=== PATIENT | male | born 1965 | race Two or more races ===

== ENCOUNTER 2020-08-03 19:54 | Inpatient (IN) | payer OTHER, MEDICAID ==
[~2020-08-03] VITALS: Ht 182.9 cm; Wt 42.0 kg
[2020-08-03] MEDS ORDERED: HEPARIN SODIUM (PORCINE) 5000 UNITS/ML 1ML VIAL ONE ×2 (20:12→20:46)
[2020-08-03] MEDS ORDERED: ASPirin 325 MG TAB PO ONE (20:15)
[2020-08-03] MEDS ORDERED: HEPARIN SODIUM (PORCINE) 5000 UNITS/ML 1ML VIAL IV ONE (20:15)
[2020-08-03] MEDS ORDERED: SODIUM CHLORIDE 0.9% 500 ML IV ONE (20:15)
[2020-08-03 20:34] LABS: Basophils # (auto) 0.2 10 ^3/uL (0-0.2); Basophils % (auto) 1.3 % (0.0-2.0); Eosinophils # (auto) 0.1 10 ^3/uL (0-0.8); Eosinophils % (auto) 0.7 % (0.0-7.0); Hematocrit 42.3 % (41.0-53.0); Hemoglobin 14.2 g/dL (13.5-17.5); Lymphocytes # (auto) 2.2 10 ^3/uL (0.4-5.4); Mean Corpuscular Hemoglobin 29.1 pg (28.0-32.0); Mean Corpuscular Hgb Conc. 33.6 g/dL (32.0-36.0); Mean Corpuscular Volume 86.8 fL (80.0-100.0); Monocytes # (auto) 0.9 10 ^3/uL (0-1.3); Monocytes % (auto) 7.3 % (0.0-12.0); Neutrophils # (auto) 9.6 10 ^3/uL (1.6-8.6); Neutrophils % (auto) 73.7 % (37.0-80.0); Nucleated Red Blood Cells % 0.1 %; Platelet Count (auto) 239 10^3/uL (140-450); Red Blood Cells 4.88 10^6/uL (4.5-5.90); Red Cell Distribution Width 15.8 % (11.8-14.3); White Blood Cell 13.1 10^3/uL (4.4-10.8)
[2020-08-03] MEDS ORDERED: IODIXANOL 320MG/ML 100ML BTL IV ONE (20:44)
[2020-08-03] MEDS ORDERED: LIDOCAINE 2%HCL (LOCAL ANESTH.) INJ 20ML MDV ONE (20:44)
[2020-08-03] MEDS ORDERED: ANGIOMAX 250 MG VIAL IV ONE ×2 (20:46→21:23)
[2020-08-03] MEDS ORDERED: VERAPAMIL 2.5MG/ML INJ 2ML VIAL IV ONE (20:47)
[2020-08-03] MEDS ORDERED: SODIUM CHL 0.9% 50 ML ONE ×2 (20:47→21:23)
[2020-08-03] MEDS ORDERED: fentaNYL CITRATE 100 MCG/2 ML VL ONE (20:47)
[2020-08-03] MEDS ORDERED: MORPHINE SULFATE 4 MG/ML SYR/VIAL IV STA (20:47)
[2020-08-03] MEDS ORDERED: MIDAZOLAM HCL 1MG/1ML-2 ML VIAL ONE (20:47)
[2020-08-03 20:49] LABS: INR 1.13 (0.9-1.15); Partial Thromboplastin Time 63.2 sec (23.0-31.2)
[2020-08-03 20:55] LABS: Albumin 2.9 g/dL (3.4-5.0); Magnesium 2.1 mg/dL (1.6-2.6)
[2020-08-03] MEDS ORDERED: ATROPINE SULF 1 MG/10ml SYR ONE (20:55)
[2020-08-03] MEDS ORDERED: EPINEPHrine HCL 1 MG/10 ML SYRG ONE (20:55)
[2020-08-03 20:59] LABS: Bilirubin, Total 0.3 mg/dL (0.2-1.0); Total Protein 7.3 g/dL (6.4-8.2)
[2020-08-03 21:02] LABS: Potassium 5.5 mmol/L (3.5-5.1)
[2020-08-03] MEDS ORDERED: ONDANSETRON HCL 4 MG/2 ML VIAL IV PRN (21:45)
[2020-08-03] MEDS ORDERED: MILK OF MAGNESIA 30ML SUSP PO ONE (21:45)
[2020-08-03] MEDS ORDERED: MORPHINE SULF INJ 2 MG/ML SYRINGE 1ML IV PRN (21:45)
[2020-08-03] MEDS ORDERED: HYDROcodone-ACET 5/325MG TAB PO PRN (21:45)
[2020-08-03] MEDS ORDERED: LORazepam 0.5 MG TAB PO PRN (21:45)
[2020-08-03] MEDS ORDERED: ACETAMINOPHEN 500 MG TAB PO PRN (21:45)
[2020-08-03] MEDS ORDERED: SODIUM CHLORIDE 0.9% 1,000 ML IV SCH (21:45)
[2020-08-03] MEDS ORDERED: MORPHINE SULFATE 4 MG/ML SYR/VIAL IV PRN (21:45)
[2020-08-03] MEDS ORDERED: NITROGLYCERIN 0.4 MG SL TAB SL PRN ×2 (21:45)
[2020-08-03] MEDS ORDERED: TICAGRELOR 90 MG TAB ONE (21:58)
[2020-08-03] MEDS: SODIUM CHLOR 0.9% PF (SALINE LOCK) 10ML VIAL/SYR IV SCH (22:00)
[2020-08-03] MEDS ORDERED: SODIUM CHLOR 0.9% PF (SALINE LOCK) 10ML VIAL/SYR IV SCH (22:00)
[2020-08-03 23:43] VITALS: BP 105/80
[2020-08-03 23:56] VITALS: BP 94/57
[2020-08-04] VITALS (24 sets, daily range): BP systolic 101–139; BP diastolic 47–86
[2020-08-04 05:17] LABS: Basophils # (auto) 0.1 10 ^3/uL (0-0.2); Basophils % (auto) 0.4 % (0.0-2.0); Eosinophils # (auto) 0.1 10 ^3/uL (0-0.8); Eosinophils % (auto) 0.7 % (0.0-7.0); Hematocrit 39.4 % (41.0-53.0); Hemoglobin 13.4 g/dL (13.5-17.5); Lymphocytes # (auto) 2.1 10 ^3/uL (0.4-5.4); Lymphocytes % (auto) 14.8 % (10.0-50.0); Mean Corpuscular Volume 85.5 fL (80.0-100.0); Monocytes # (auto) 1.1 10 ^3/uL (0-1.3); Monocytes % (auto) 7.9 % (0.0-12.0); Neutrophils # (auto) 10.8 10 ^3/uL (1.6-8.6); Neutrophils % (auto) 76.2 % (37.0-80.0); Nucleated Red Blood Cells % 0.6 %; Red Blood Cells 4.61 10^6/uL (4.5-5.90); Red Cell Distribution Width 15.6 % (11.8-14.3); White Blood Cell 14.1 10^3/uL (4.4-10.8)
[2020-08-04 05:22] LABS: Platelet Count (auto) 236 10^3/uL (140-450)
[2020-08-04 05:25] LABS: Albumin 2.8 g/dL (3.4-5.0); Calcium 7.8 mg/dL (8.5-10.1)
[2020-08-04 05:29] LABS: BUN/Creatinine Ratio 17.1; Bilirubin, Total 0.3 mg/dL (0.2-1.0); Total Protein 6.5 g/dL (6.4-8.2)
[2020-08-04] MEDS ORDERED: OPTISON 3ml Vial for INJ IV ONE (08:54)
[2020-08-04] MEDS: TICAGRELOR 90 MG TAB PO SCH ×2 (09:33→22:18)
[2020-08-04] MEDS ORDERED: BACLOFEN 10 MG TAB PO PRN (13:15)
[2020-08-04] MEDS ORDERED: PANTOPRAZOLE 40 MG TAB PO ONE (13:15)
[2020-08-04] MEDS ORDERED: TERA1CAP33 PO (13:46)
[2020-08-04] MEDS ORDERED: BACL10TA PO (13:46)
[2020-08-04] MEDS ORDERED: LOVA40TA72 PO ×2 (13:46)
[2020-08-04] MEDS ORDERED: OMEP20TA PO (13:46)
[2020-08-04] MEDS ORDERED: CEPH250C PO (13:46)
[2020-08-04] MEDS: SODIUM CHLOR 0.9% PF (SALINE LOCK) 10ML VIAL/SYR IV SCH ×3 (17:28→22:18)
[2020-08-04] MEDS ORDERED: ATORVASTATIN 20 MG TAB PO SCH (22:00)
[2020-08-05 05:00] VITALS: BP 108/65
[2020-08-05 05:55] LABS: Basophils # (auto) 0 10 ^3/uL (0-0.2); Basophils % (auto) 0.4 % (0.0-2.0); Eosinophils # (auto) 0.1 10 ^3/uL (0-0.8); Eosinophils % (auto) 0.9 % (0.0-7.0); Hematocrit 39.3 % (41.0-53.0); Hemoglobin 13.5 g/dL (13.5-17.5); Lymphocytes # (auto) 1.9 10 ^3/uL (0.4-5.4); Lymphocytes % (auto) 17.7 % (10.0-50.0); Mean Corpuscular Hemoglobin 29.9 pg (28.0-32.0); Mean Corpuscular Hgb Conc. 34.5 g/dL (32.0-36.0); Mean Corpuscular Volume 86.8 fL (80.0-100.0); Monocytes % (auto) 9.1 % (0.0-12.0); Neutrophils # (auto) 7.6 10 ^3/uL (1.6-8.6); Neutrophils % (auto) 71.9 % (37.0-80.0); Platelet Count (auto) 231 10^3/uL (140-450); Red Blood Cells 4.52 10^6/uL (4.5-5.90); Red Cell Distribution Width 15.8 % (11.8-14.3); White Blood Cell 10.6 10^3/uL (4.4-10.8)
[2020-08-05 06:08] LABS: Potassium 3.8 mmol/L (3.5-5.1)
[2020-08-05 06:17] LABS: BUN/Creatinine Ratio 18.3; Calcium 8.2 mg/dL (8.5-10.1)
[2020-08-05] MEDS: SODIUM CHLOR 0.9% PF (SALINE LOCK) 10ML VIAL/SYR IV SCH (06:49)
[2020-08-05] MEDS ORDERED: CLOPIDOGREL 300 MG TAB PO ONE (08:00)
[2020-08-05 09:00] VITALS: BP 129/81
[2020-08-05] MEDS ORDERED: ASPirin 81 mg TAB PO SCH (10:00)
[2020-08-05] MEDS ORDERED: PANTOPRAZOLE 40 MG TAB PO SCH (10:00)
[2020-08-05 11:45] VITALS: BP 129/81
[2020-08-05 12:52] VITALS: BP 142/79
[2020-08-06] MEDS ORDERED: CLOPIDOGREL BISULFATE 75 MG TAB PO SCH (10:00)
== END 2020-08-05 13:10 | disposition home or self-care (01) | DRG 246 ==
LOC: EDBD 19:54 → ER 19:57 → TELE 21:38 → ICU WEST 22:21 → TELE-EAST 08-04 15:24
PROVIDERS: ADMIT Internal Medicine; ATTEND Internal Medicine
PROC: B2111ZZ Fluoroscopy of Multiple Coronary Arteries using Low Osmolar Contrast (ICD-10-PCS; principal; 2020-08-03)
PROC: 027034Z Dilation of Coronary Artery, One Artery with Drug-eluting Intraluminal Device, Percutaneous Approach (ICD-10-PCS; 2020-08-03)
PROC: 4A023N7 Measurement of Cardiac Sampling and Pressure, Left Heart, Percutaneous Approach (ICD-10-PCS; 2020-08-03)
PROC: 5A09357 Assistance with Respiratory Ventilation, Less than 24 Consecutive Hours, Continuous Positive Airway Pressure (ICD-10-PCS; 2020-08-04)
DX: I21.29 ST elevation (STEMI) myocardial infarction involving other sites (principal); R65.11 Systemic inflammatory response syndrome (SIRS) of non-infectious origin with acute organ dysfunction; J98.11 Atelectasis; Z68.42 Body mass index [BMI] 45.0-49.9, adult; Z20.822 Contact with and (suspected) exposure to COVID-19; E66.01 Morbid (severe) obesity due to excess calories; I10 Essential (primary) hypertension; E78.5 Hyperlipidemia, unspecified; G47.33 Obstructive sleep apnea (adult) (pediatric); Z79.02 Long term (current) use of antithrombotics/antiplatelets; Z79.82 Long term (current) use of aspirin; Z88.0 Allergy status to penicillin; Z88.8 Allergy status to other drugs, medicaments and biological substances
CPT/HCPCS: 36415; 71045; 80048; 80053; 80061; 83735; 84484; 85025; 85610; 85730; 86850; 86900; 86901; 87081; 87426; 92928; 93005; 93306; 93458; 96361; 96374; 96375; 99152; 99153; C1874; G0378; J2250; Q9956; Q9967

== ENCOUNTER 2023-04-23 09:19 | Emergency (ER) | payer OTHER, MEDICAID ==
[~2023-04-23] VITALS: Ht 177.8 cm; Wt 136.3 kg
[~2023-04-23 09:19] MED LIST: BACL10TA PO; CEPH250C PO; LOVA40TA72 PO; OMEP20TA PO; TERA1CAP33 PO
[2023-04-23 09:56] LABS: Basophils # (auto) 0.1 10 ^3/uL (0-0.2); Basophils % (auto) 0.8 % (0.0-2.0); Eosinophils # (auto) 0.2 10 ^3/uL (0-0.8); Eosinophils % (auto) 2.2 % (0.0-7.0); Hematocrit 40.6 % (41.0-53.0); Hemoglobin 13.6 g/dL (13.5-17.5); Lymphocytes # (auto) 2.2 10 ^3/uL (0.4-5.4); Lymphocytes % (auto) 21.5 % (10.0-50.0); Mean Corpuscular Hgb Conc. 33.5 g/dL (32.0-36.0); Mean Corpuscular Volume 86.4 fL (80.0-100.0); Monocytes # (auto) 0.8 10 ^3/uL (0-1.3); Monocytes % (auto) 7.8 % (0.0-12.0); Neutrophils % (auto) 67.7 % (37.0-80.0); Nucleated Red Blood Cells % 0.1 %; Red Cell Distribution Width 16.3 % (11.8-14.3); White Blood Cell 10.3 10^3/uL (4.4-10.8)
[2023-04-23 10:07] LABS: Alanine Aminotransferase 26 U/L (7-40); Alkaline Phosphatase 98 U/L (46-116); Anion Gap 7 (5-15); Aspartate Aminotransferase 26 U/L (13-40); BUN/Creatinine Ratio 19.3 (10.0-20.0); Bilirubin, Total 0.3 mg/dL (0.2-1.0); Blood Urea Nitrogen 17 mg/dL (9-23); Calcium 8.9 mg/dL (8.5-10.1); Carbon Dioxide 25 mmol/L (20-30); Chloride 109 mmol/L (98-107); Glucose 99 mg/dL (74-106); Potassium 4.4 mmol/L (3.5-5.1); Sodium 141 mmol/L (136-145)
[2023-04-23 10:08] LABS: Total Protein 6.3 g/dL (5.7-8.2)
[2023-04-23 12:48] LABS: Urine Bacteria NONE SEEN /hpf (None Seen); Urine Blood Negative /uL (Negative); Urine Clarity Clear (Clear); Urine Mucus FEW (None Seen); Urine Protein, UAD Negative (Negative); Urine Specific Gravity 1.015 (1.001-1.035); Urine Urobilinogen Normal (Negative); Urine WBC 1 /hpf (0 - 3); Urine pH 6.5 (5.0-8.0)
[2023-04-23 12:57] VITALS: BP 118/67; TEMP 98.5
[2023-04-23 12:58] VITALS: PULSE 68; RESP 18; O2SAT 96
[2023-04-23 12:59] LABS: Urine Color STRAW (Yellow)
== END 2023-04-23 12:59 | disposition home or self-care (01) ==
LOC: ER 09:19 → EDBD 09:19 → ER 12:59
DX: R07.89 Other chest pain (principal); I10 Essential (primary) hypertension; E11.9 Type 2 diabetes mellitus without complications; I25.2 Old myocardial infarction; Z86.73 Personal history of transient ischemic attack (TIA), and cerebral infarction without residual deficits; Z88.0 Allergy status to penicillin
CPT/HCPCS: 36415; 80053; 81001; 83880; 84484; 85025; 93005

== ENCOUNTER 2023-04-28 03:52 | Emergency (ER) | payer OTHER, MEDICAID ==
[~2023-04-28] VITALS: Ht 172.7 cm; Wt 190.0 kg
[2023-04-28 04:24] LABS: Basophils # (auto) 0.1 10 ^3/uL (0-0.2); Basophils % (auto) 0.5 % (0.0-2.0); Eosinophils # (auto) 0.3 10 ^3/uL (0-0.8); Hematocrit 41.5 % (41.0-53.0); Hemoglobin 13.5 g/dL (13.5-17.5); Lymphocytes # (auto) 2.1 10 ^3/uL (0.4-5.4); Lymphocytes % (auto) 16.2 % (10.0-50.0); Mean Corpuscular Hemoglobin 28.1 pg (28.0-32.0); Mean Corpuscular Hgb Conc. 32.5 g/dL (32.0-36.0); Mean Corpuscular Volume 86.4 fL (80.0-100.0); Monocytes # (auto) 1.1 10 ^3/uL (0-1.3); Monocytes % (auto) 8.5 % (0.0-12.0); Neutrophils # (auto) 9.4 10 ^3/uL (1.6-8.6); Neutrophils % (auto) 72.8 % (37.0-80.0); Nucleated Red Blood Cells % 0.1 %; Red Blood Cells 4.81 10^6/uL (4.5-5.90); Red Cell Distribution Width 16.4 % (11.8-14.3); White Blood Cell 12.9 10^3/uL (4.4-10.8)
[2023-04-28 04:46] LABS: Alanine Aminotransferase 25 U/L (7-40); Albumin 4.1 g/dL (3.2-4.8); Alkaline Phosphatase 101 U/L (46-116); Anion Gap 8 (5-15); Aspartate Aminotransferase 27 U/L (13-40); BUN/Creatinine Ratio 13.3 (10.0-20.0); Bilirubin, Total 0.3 mg/dL (0.2-1.0); Blood Urea Nitrogen 13 mg/dL (9-23); Calcium 9.1 mg/dL (8.7-10.4); Carbon Dioxide 22 mmol/L (20-30); Chloride 110 mmol/L (98-107); Glucose 110 mg/dL (74-106); Lipase 41 U/L (12-53); Sodium 140 mmol/L (136-145); Total Protein 6.6 g/dL (5.7-8.2)
[2023-04-28 07:30] VITALS: PULSE 72; RESP 19; TEMP 97.6; O2SAT 95
[2023-04-28] MEDS ORDERED: BACDST PO (07:42)
[2023-04-28] MEDS ORDERED: SODIUM CHLORIDE 0.9% 1,000 ML IV ONE (07:45)
[2023-04-28] MEDS ORDERED: levoFLOXacin 750MG 150 ML IV ONE (08:30)
[2023-04-28 08:33] LABS: Urine Bacteria NONE SEEN /hpf (None Seen); Urine Blood 1+ /uL (Negative); Urine Clarity Clear (Clear); Urine Color Colorless (Yellow); Urine Protein, UAD Negative (Negative); Urine Specific Gravity 1.016 (1.001-1.035); Urine Urobilinogen Normal (Negative); Urine WBC 2 /hpf (0 - 3); Urine pH 5.5 (5.0-8.0)
[2023-04-28 10:18] VITALS: BP 123/68; PULSE 60; RESP 19; O2SAT 96
== END 2023-04-28 11:23 | disposition home or self-care (01) ==
LOC: ER 03:52 → EDBD 03:52 → ER 11:23
DX: M79.18 Myalgia, other site (principal); N39.0 Urinary tract infection, site not specified; I10 Essential (primary) hypertension; I25.2 Old myocardial infarction; Z86.73 Personal history of transient ischemic attack (TIA), and cerebral infarction without residual deficits; Z88.0 Allergy status to penicillin
CPT/HCPCS: 36415; 80053; 81001; 83690; 84484; 85025; 93005; 96365; 99284; J1956; J7030

== ENCOUNTER 2023-12-10 11:18 | Emergency (ER) | payer OTHER, MEDICAID ==
[~2023-12-10] VITALS: Ht 172.7 cm; Wt 177.3 kg
[~2023-12-10 11:18] MED LIST changes: +BACDST PO; -TERA1CAP33 PO; +TERA1CAP52 PO
[2023-12-10 11:52] VITALS: PULSE 68; RESP 16; TEMP 98; O2SAT 97
[2023-12-10 12:59] LABS: Basophils # (auto) 0.1 10 ^3/uL (0-0.2); Basophils % (auto) 0.6 % (0.0-2.0); Eosinophils # (auto) 0.1 10 ^3/uL (0-0.8); Eosinophils % (auto) 0.7 % (0.0-7.0); Hematocrit 42.6 % (41.0-53.0); Hemoglobin 14.1 g/dL (13.5-17.5); Lymphocytes # (auto) 1.8 10 ^3/uL (0.4-5.4); Mean Corpuscular Hemoglobin 29.1 pg (28.0-32.0); Mean Corpuscular Hgb Conc. 33.1 g/dL (32.0-36.0); Monocytes # (auto) 0.7 10 ^3/uL (0-1.3); Monocytes % (auto) 6.8 % (0.0-12.0); Neutrophils # (auto) 8.1 10 ^3/uL (1.6-8.6); Neutrophils % (auto) 74.9 % (37.0-80.0); Nucleated Red Blood Cells % 0.1 %; Red Blood Cells 4.84 10^6/uL (4.5-5.90); Red Cell Distribution Width 16.7 % (11.8-14.3); White Blood Cell 10.8 10^3/uL (4.4-10.8)
[2023-12-10 13:16] LABS: Albumin 4.3 g/dL (3.2-4.8); Alkaline Phosphatase 111 U/L (46-116); Anion Gap 6 (5-15); Aspartate Aminotransferase 38 U/L (13-40); Calcium 9.5 mg/dL (8.5-10.1); Carbon Dioxide 25 mmol/L (20-30); Chloride 107 mmol/L (98-107); Glucose 87 mg/dL (74-106); Sodium 138 mmol/L (136-145)
[2023-12-10 13:17] LABS: Bilirubin, Total 0.5 mg/dL (0.2-1.0); Total Protein 7.6 g/dL (5.7-8.2)
[2023-12-10 13:21] LABS: INR 1.05 (0.9-1.15); Prothrombin Time 11.1 sec (9.3-11.8)
[2023-12-10 13:22] LABS: Alanine Aminotransferase 20 U/L (7-40); Blood Urea Nitrogen 6 mg/dL (9-23); Potassium 4.6 mmol/L (3.5-5.1)
[2023-12-10 13:23] LABS: BUN/Creatinine Ratio 6.5 (10.0-20.0)
[2023-12-10 16:28] LABS: Urine Bacteria None Seen /hpf (None Seen)
[2023-12-10 16:40] LABS: Urine Blood Negative /uL (Negative); Urine Clarity Clear (Clear); Urine Color Light-Yellow (Yellow); Urine Protein, UAD Negative (Negative); Urine Specific Gravity 1.012 (1.001-1.035); Urine Urobilinogen Normal (Negative); Urine WBC 1 /hpf (0 - 3)
[2023-12-10] MEDS ORDERED: CEPH250C PO (19:03)
[2023-12-10 19:30] VITALS: BP 135/53; PULSE 63; RESP 16; O2SAT 94
== END 2023-12-10 19:30 | disposition home or self-care (01) ==
LOC: ER 11:18 → EDBD 11:18 → ER 19:30
DX: L98.499 Non-pressure chronic ulcer of skin of other sites with unspecified severity (principal); L03.116 Cellulitis of left lower limb; L03.115 Cellulitis of right lower limb; E11.9 Type 2 diabetes mellitus without complications; I10 Essential (primary) hypertension; I25.2 Old myocardial infarction; Z88.0 Allergy status to penicillin; Z88.1 Allergy status to other antibiotic agents; Z86.73 Personal history of transient ischemic attack (TIA), and cerebral infarction without residual deficits; Z98.61 Coronary angioplasty status
CPT/HCPCS: 36415; 73590; 73600; 73620; 80053; 81001; 85025; 85379; 85610; 87040; 93970

== ENCOUNTER 2024-06-12 13:38 | Emergency (ER) | payer OTHER, MEDICAID ==
[~2024-06-12] VITALS: Ht 177.8 cm; Wt 159.0 kg
--- NOTE | 2024-06-12 13:48 | ED.PDOC ---
GI ASSESSMENT HPI Comments 58Y M with PMHx HTN, CAD, CA s/p stenting, and CVA presents to ED via EMS for chief complaint abd pain x5days. The abd pain is intermittent, located on lower region, and radiates to pt's back. Pt denies n/v/d, SOB, and chest pain. Pt had a normal bowel movement yesterday. Pt usually walks with a cane. Pt has not driven in 1.5 yrs. VSS with EMS. Chief Complaint: Abdominal Pain Time Seen by MD: 13:34 Primary Care Provider: unknown Reviewed Notes: Medications, Allergies Allergies: Coded Allergies: Penicillins (Verified Allergy, Unknown, 04/23/23) Simvastatin (Verified Allergy, Unknown, 04/23/23) Home Meds Active Scripts Cephalexin (KEFLEX CAPSULE) 250 Mg Cp, 500 MG PO BID, #14 CAP Prov:TYRA RODRIGUEZ MD 12/10/23 Sulfamethoxazole W/Trimethopri (Bactrim Ds Tablet) 1 Tab Tb, 1 TAB PO BID for 7 Days, #14 TAB Prov:NAILA CHENEY MD 04/28/23 Reported Medications Cephalexin (KEFLEX CAPSULE) 250 Mg Cp, 500 MG PO x 10 days for tooth infection 08/04/20 Baclofen (Baclofen) 10 Mg Tab, 10 MG PO QHSP PRN for FOR MUSCLE SPASM for 30 Days, MG 08/04/20 Lovastatin (Lovastatin) 40 Mg Tab, 1 TAB PO HS, #90 TAB 3 Refills 08/04/20 Omeprazole (Gnp Omeprazole) 20 Mg Tab, 20 MG PO DAILY for gi issues/ heart burn, TAB 08/04/20 Terazosin Hcl (Terazosin Hcl) 1 Mg Cap, 1 MG PO for prostate issues for 30 Days, MG 08/04/20 Information Source: Patient, Emergency Med Personnel Mode of Arrival: EMS Brought in by: EMS Timing: Days Duration: Intermittent Prehospital treatment: None Quality: Sharp Vomitus: None Stool: Normal Severity: Mild Recent: None Recent Hx of: None Pain Location: RLQ, LLQ Modifying Factors: Nothing Associated sign and symptoms: Abdominal Pain, Other Past Medical History PAST MEDICAL HISTORY: CAD, CVA, HTN, CA Surgical History: PTCA Family History Family History: Reviewed,noncontributory to illness Social History Smoker: Non-Smoker Alcohol: Denies ETOH Use Drugs: Denies Drug Use Lives In: Home Constitutional: denies: chills, diaphoresis, fatigue, fever, malaise, sweats, weakness, others EENTM: denies: blurred vision, double vision, ear bleeding, ear discharge, ear drainage, ear pain, ear ringing, eye pain, eye redness, hearing loss, mouth pain, mouth swelling, nasal discharge, nose bleeding, nose congestion, nose pain, photophobia, tearing, throat pain, throat swelling, voice changes, others Respiratory: denies: cough, hemoptysis, orthopnea, SOB at rest, shortness of breath, SOB with excertion, stridor, wheezing, others Cardiovascular: denies: chest pain, dizzy spells, diaphoresis, Dyspnea on exert ion, edema, irregular heart beat, left arm pain, lightheadedness, palpitations, PND, syncope, others Gastrointestinal: reports: abdominal pain; denies: abdomen distended, blood streaked bowels, constipated, diarrhea, dysphagia, difficulty swallowing, hematemesis, melena, nausea, poor appetite, poor fluid intake, rectal bleeding, rectal pain, vomiting, others Genitourinary: denies: burning, dysuria, flank pain, frequency, hematuria, incontinence, penile discharge, penile sore, pain, testicle pain, testicle swelling, urgency, others Neurological: denies: dizziness, fainting, headache, left sided numbness, left sided weakness, numbness, paresthesia, pre-existing deficit, right sided numbness, right sided weakness, seizure, speech problems, tingling, tremors, weakness, others Musculoskeletal: reports: back pain; denies: gout, joint pain, joint swelling, muscle pain, muscle stiffness, neck pain, others Integumetry: denies: bruises, change in color, change in hair/nails, dryness, laceration, lesions, lumps, rash, wounds, others Allergic/Immunocompromised: denies: Difficulty Healing, Frequent Infections, Hives, Itching, others Hematologic/Lymphatic: denies: anemia, blood clots, easy bleeding, easy br uising, swollen glands, others Endocrine: denies: excessive hunger, excessive sweating, excessive thirst, excessive urination, flushing, intolerance to cold, intolerance to heat, unexplained weight gain, unexplained weight loss, others Psychiatric: denies: anxiety, bipolar disorder, depression, hopeless, panic disorder, schizophrenia, sleepless, suicidal, others All Other Systems: Reviewed and Negative Physical Exam General Appearance: Moderate Distress, Obese HEENT: Normal ENT Inspection, Pharynx Normal, TMs Normal Neck: Full Range of Motion, Non-Tender, Normal, Normal Inspection Respiratory: Chest Non-Tender, Lungs Clear, No Accessory Muscle Use, No Respiratory Distress, Normal Breath Sounds Cardiovascular: No Edema, No JVD, No Murmur, No Gallop, Normal Peripheral Pulses, Regular Rate/Rhythm Breast Exam: Deferred Gastrointestinal: No Organomegaly, Non Tender, No Pulsatile Mass, Normal Bowel Sounds, Soft Genitalia: Deferred Pelvic: Deferred Rectal: Deferred Extremities: Decreased range of motion (Left upper lower extremity), No calf tenderness, Normal capillary refill, Non-tender, No pedal edema Musculoskeletal : Apperance: Normal Neurologic: Alert, Motor Weakness (Left upper lower extremity) Cerebellar Function: NOT DONE Reflexes: NOT DONE Skin: Dry, Normal Color, Warm Peripheral Pulses: 3+ Radial (R), 3+ Radial (L) Lymphatic: No Adenopathy Was a procedure done? Was a procedure done?: No GI differential Dx Differential Diagnosis: Constipation, Diverticular disease, Esophagitis, Gastritis/PUD, Gastroenteritis X-Ray, Labs, Meds, VS Vital Signs Date Time Temp Pulse Resp B/P (MAP) Pulse Ox O2 Delivery O2 Flow Rate FiO2 06/12/24 14:10 60 16 96 Room Air* 0 21 06/12/24 14:07 97.8 60 16 129/76 (93) 96 97.8 06/12/24 13:40 98.0 66 16 140/78 (98) 97 Lab Test 06/12/24 15:13 06/12/24 14:01 Range/Units Urine Color Light-yellow Yellow Urine Clarity Clear Clear Urine pH 5.5 5.0-9.0 Urine Specific Gardner 1.023 1.001-1.035 Urine Protein Trace H Negative Urine Ketones Trace Negative Urine Blood 2+ H Negative /uL Urine Nitrite Negative Negative Urine Bilirubin Negative Negative Urine Urobilinogen Normal Negative mg/dL Urine Leukocyte Esterase Trace Negative /uL Urine RBC 80 0 - 3 /hpf Urine WBC 15 0 - 3 /hpf Urine Squamous Epithelial Cells Few <5 /hpf Urine Bacteria None seen None Seen /hpf Urine Hyaline Casts Few 0 - 2 /lpf Urine Mucus Few None Seen Urine Glucose Normal Normal mg/dL White Blood Count 16.8 H 4.4-10.8 10^3/uL Red Blood Count 5.27 4.5-5.90 10^6/uL Hemoglobin 14.8 13.5-17.5 g/dL Hematocrit 45.5 41.0-53.0 % Mean Corpuscular Volume 86.2 80.0-100.0 fL Mean Corpuscular Hemoglobin 28.1 28.0-32.0 pg Mean Corpuscular Hemoglobin Concent 32.6 32.0-36.0 g/dL Red Cell Distribution Width 16.8 H 11.8-14.3 % Platelet Count 288 140-450 10^3/uL Mean Platelet Volume 8.1 6.9-10.8 fL Neutrophils (%) (Auto) 37.0-80.0 % Lymphocytes (%) (Auto) 10.0-50.0 % Monocytes (%) (Auto) 0.0-12.0 % Basophils (%) (Auto) 0.0-2.0 % Neutrophils # (Auto) 1.6-8.6 10 ^3/uL Lymphocytes # (Auto) 0.4-5.4 10 ^3/uL Monocytes # (Auto) 0-1.3 10 ^3/uL Differential Total Cells Counted 100.0 100 Neutrophils % (Manual) 78 37.0-80.0 Band Neutrophils % (Manual) 3 Lymphocytes % (Manual) 14 10.0-50.0 Monocytes % (Manual) 5 0-12 Eosinophils % (Manual) 0 0-7 Basophils % (Manual) 0 0.0-2.0 Metamyelocytes % (manual) 0 Myelocytes % (Manual) 0 Promyelocytes % (Manual) 0 Blast Cells % (Manual) 0 Reactive Lymphocytes 0 Platelet Estimate Adequate Sodium Level 142 136-145 mmol/L Potassium Level 4.3 3.5-5.1 mmol/L Chloride Level 109 H 98-107 mmol/L Carbon Dioxide Level 24 20-31 mmol/L Anion Gap 9 5-15 Blood Urea Nitrogen 10 9-23 mg/dL Creatinine 1.09 0.700-1.30 mg/dL Glomerular Filtration Rate Calc 78 >90 mL/min BUN/Creatinine Ratio 9.2 L 10.0-20.0 Serum Glucose 99 74-106 mg/dL Calcium Level 9.3 8.7-10.4 mg/dL Current Medications Medications (Trade) Dose Ordered Sig/Joe Route Start Time Stop Time Status Last Admin Ceftriaxone Sodium 50 ml @ 100 mls/hr ONCE ONCE IV 06/12/24 15:15 06/12/24 15:44 DC 06/12/24 16:31 Patient alert. Complaining of abdominal pain. Vitals stable. Answering all questions. WBC elevated. Hemoglobin within normal limits. Morbidly obese. Chronic history. Possible colitis. Reviewed his previous visit. Explained to the patient. 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 [id number]. Time of 1ST Reevaluation: 14:04 Reevaluation 1ST: Unchanged Patient Education/Counseling: Diagnosis, Treatment Family Education/Counseling: No Family Present Departure 1 Departure Time of Disposition: 15:05 Impression: Primary Impression: Acute abdominal pain Additional Impression: Non-specific colitis Disposition: ADMITTED INPATIENT Admit to: Med Surg Condition: Guarded Critical Care Note Critical Care Time?: No Stability Stability form required: No Heart Score Heart Score: Heart Score Response (Comments) Value History Slightly Suspicious 0 EKG Normal 0 Age 45-64 1 Risk Factors 1 or 2 risk factors 1 Troponin N/A 0 Total 2 I personally scribed for NAILA CHENEY MD ([email or web address]) on 06/12/24 at 13:48. Electronically submitted by Madelyn Valencia ([email or web address]). NAILA CHENEY MD Jun 12, 2024 13:48
[2024-06-12 14:10] VITALS: PULSE 60; RESP 16; O2SAT 96
[2024-06-12 14:25] LABS: Hematocrit 45.5 % (41.0-53.0); Hemoglobin 14.8 g/dL (13.5-17.5); Mean Corpuscular Hemoglobin 28.1 pg (28.0-32.0); Mean Corpuscular Hgb Conc. 32.6 g/dL (32.0-36.0); Mean Corpuscular Volume 86.2 fL (80.0-100.0); Platelet Count (auto) 288 10^3/uL (140-450); Red Blood Cells 5.27 10^6/uL (4.5-5.90); Red Cell Distribution Width 16.8 % (11.8-14.3); White Blood Cell 16.8 10^3/uL (4.4-10.8)
[2024-06-12 14:30] LABS: Potassium 4.3 mmol/L (3.5-5.1); Sodium 142 mmol/L (136-145)
[2024-06-12 14:31] LABS: Anion Gap 9 (5-15); Calcium 9.3 mg/dL (8.7-10.4); Carbon Dioxide 24 mmol/L (20-31)
[2024-06-12 14:36] LABS: BUN/Creatinine Ratio 9.2 (10.0-20.0); Blood Urea Nitrogen 10 mg/dL (9-23); Glucose 99 mg/dL (74-106)
[2024-06-12 14:47] LABS: Basophils % (manual) 0 (0.0-2.0); Blast Cells 0; Chloride 109 mmol/L (98-107); Eosinophils % (manual) 0 (0-7); Metamyelocytes % 0; Myelocytes % 0; Promyelocytes % 0; Reactive Lymphocytes 0
[2024-06-12 15:00] LABS: Band Neutrophils % (manual) 3; Lymphocytes % (manual) 14 (10.0-50.0); Monocytes % (manual) 5 (0-12); Platelet Estimate Adequate
[2024-06-12 15:45] LABS: Urine Bacteria None Seen /hpf (None Seen)
[2024-06-12 16:29] LABS: Urine Blood 2+ /uL (Negative); Urine Clarity Clear (Clear); Urine Color Light-Yellow (Yellow); Urine Hyaline Cast FEW /lpf (0 - 2); Urine Mucus FEW (None Seen); Urine Protein, UAD TRACE (Negative); Urine Specific Gravity 1.023 (1.001-1.035); Urine Urobilinogen Normal (Negative); Urine WBC 15 /hpf (0 - 3); Urine pH 5.5 (5.0-9.0)
[2024-06-12] MEDS: cefTRIAXone 1GM/50ML D5W 50 ML IV ONE (16:31)
[2024-06-12] MEDS: metroNIDAZOLE 500MG/100ML 100 ML IV ONE (16:49)
--- NOTE | 2024-06-12 16:56 | DVH ---
EXAM: XR Chest, 1 View CLINICAL INDICATION: sob TECHNIQUE: Frontal view of the chest. COMPARISON: CHEST PORTABLE on DOS: 08/04/20, CHEST PORTABLE on DOS: 08/03/20 FINDINGS: LUNGS AND PLEURAL SPACES: Unremarkable. No consolidation. No pneumothorax. HEART: Unremarkable. No cardiomegaly. MEDIASTINUM: Unremarkable. Normal mediastinal contour. BONES/JOINTS: Unremarkable. No acute fracture. OTHER FINDINGS: . . . IMPRESSION: No acute cardiopulmonary process. HS:Y
--- NOTE | 2024-06-12 17:56 | DVH ---
Exam: CT CT AB PEL WO CON-NO ORAL OR IV History: stone Comparison Study: CT abdomen and pelvis 10/17/2022 TECHNIQUE: Multidetector CT of the abdomen and pelvis without contrast. Axial, coronal and sagittal m ultiplanar reformats were obtained from the axial data set by the technologist. Radiation Dose Information: CT Dose: CTDI volume is 25.47 mGy. Dose-length product is 1436.07 mGy*cm FINDINGS: Bibasilar atelectasis. Partially visualized heart is unremarkable. Liver, spleen, gallbladder, pancreas and adrenal glands unremarkable. 4.4 cm left renal upper pole cyst. Punctate nonobstructing bilateral renal calculi. Mkbh-ix-woepgkjf left hydronephrosis with mild fat stranding adjacent to the left renal pelvis, left ureter and left-g xixczr-fxvb-lazzg perinephric fat stranding. 4 mm obstructing calculus within the left distal ureter. Right renal parapelvic cysts. Urinary bladde r is unremarkable. Prostate measures 3 x 5.9 x 3.8 cm. Stomach is unremarkable. Small bowel loops are unremarkable. Appendix is unremarkable. Minimal wall t hickening of the ascending colon. Mild rectal wall thickening. The remainder of the large bowel is unremarkable. No evidence of intraperitoneal free air or free fluid. No evidence of aortic aneurysm. Ptdr-dj-ocesexbv atherosclerotic calcification of the aorta and bilat eral iliacs. No significant lymphadenopathy. Small fat containing bilateral inguinal hernias. Tiny fat containing umbilical hernia. No destructive osseous lesions are noted. IMPRESSION: Dsce-vg-vwlplwtk left hydronephrosis with 4 mm obstructing calculus within the left distal ureter. Mild fat stranding adjacent to the left renal pelvis and left ureter which may be from the obstructin g hydronephrosis. Underlying infectious process can not be excluded. Additional punctate nonobstructing bilateral renal calculi are noted. Minimal wall thickening of the ascending colon. Correlate for mild colitis. Mild rectal wall thickening which may be due to inadequate distention with neoplasm not excluded. Additional findings as above.
[2024-06-12 19:35] VITALS: PULSE 82; RESP 16; O2SAT 95
[2024-06-12 20:06] VITALS: BP 138/65; PULSE 86; RESP 16; TEMP 98.7; O2SAT 94
== END 2024-06-12 20:07 | disposition short-term general hospital (02) ==
LOC: EDBD 13:38 → ER 13:38
DX: K52.9 Noninfective gastroenteritis and colitis, unspecified (principal); I10 Essential (primary) hypertension; I25.10 Atherosclerotic heart disease of native coronary artery without angina pectoris; I25.2 Old myocardial infarction; Z86.73 Personal history of transient ischemic attack (TIA), and cerebral infarction without residual deficits; Z98.890 Other specified postprocedural states; Z88.0 Allergy status to penicillin; Z79.899 Other long term (current) drug therapy; Z88.8 Allergy status to other drugs, medicaments and biological substances
CPT/HCPCS: 36415; 71045; 74176; 80048; 81001; 85007; 85027; 96365; 96366; 96368; 99285; J0696; J3490

== ENCOUNTER 2025-01-23 04:08 | Emergency (ER) | payer OTHER, MEDICAID ==
[~2025-01-23] VITALS: Ht 167.6 cm; Wt 136.1 kg
[2025-01-23 05:15] VITALS: PULSE 62; RESP 21; O2SAT 94
--- NOTE | 2025-01-23 06:25 | ED.PDOC ---
HPI Comments 59 y/o M, BIBA, with PMHx of HTN, MT, CAD, CVA presents to the ED for CC of chest pain. EMS reports, patient is coming from home where he c/o right-sided chest pain radiating to his neck [id number]. Patient is bedridden and has notable swelling to his bilateral lower extremities. Patient denies nausea, vomiting, diarrhea, shortness of breath, or palpitations. No other symptoms or modifying factors present at this time. Chief Complaint: Chest Pain Time Seen by MD: 06:20 Primary Care Provider: unknown Reviewed Notes: Nurses Notes, Microbiology Supervisor Notes, Medications, Allergies Allergies: Coded Allergies: Penicillins (Verified Allergy, Unknown, 04/23/23) Simvastatin (Verified Allergy, Unknown, 04/23/23) Home Meds Active Scripts Pantoprazole Sodium Sesquihydr (Protonix) 40 Mg Tab, 40 MG PO DAILY PRN for 5 Days, #5 TAB Prov:NAILA CHENEY MD 01/23/25 Cephalexin (KEFLEX CAPSULE) 250 Mg Cp, 500 MG PO BID, #14 CAP Prov:TYRA RODRIGUEZ MD 12/10/23 Sulfamethoxazole W/Trimethopri (Bactrim Ds Tablet) 1 Tab Tb, 1 TAB PO BID for 7 Days, #14 TAB Prov:NAILA CHENYE MD 04/28/23 Reported Medications Cephalexin (KEFLEX CAPSULE) 250 Mg Cp, 500 MG PO x 10 days for tooth infection 08/04/20 Baclofen (Baclofen) 10 Mg Tab, 10 MG PO QHSP PRN for FOR MUSCLE SPASM for 30 Day s, MG 08/04/20 Lovastatin (Lovastatin) 40 Mg Tab, 1 TAB PO HS, #90 TAB 3 Refills 08/04/20 Omeprazole (Gnp Omeprazole) 20 Mg Tab, 20 MG PO DAILY for gi issues/ heart burn, TAB 08/04/20 Terazosin Hcl (Terazosin Hcl) 1 Mg Cap, 1 MG PO for prostate issues for 30 Days, MG 08/04/20 Information Source: Patient, Emergency Med Personnel Mode of Arrival: EMS Severity: Moderate Timing: Hours Duration: Since onset Prehospital treatment: None Location: Chest (R) Radiation: Neck Quality: Pressure Onset: At Rest Cardiac Risk Factors: HTN PE Risk Factors: None History of: MT Modifying Factors: Nothing Associated Signs and Symptoms: None Past Medical History PAST MEDICAL HISTORY: CAD, CVA, HTN, MT Surgical History: PTCA Family History Family History: Reviewed,noncontributory to illness Social History Smoker: Non-Smoker Alcohol: Denies ETOH Use Drugs: Denies Drug Use Lives In: Home Constitutional: denies: chills, diaphoresis, fatigue, fever, malaise, sweats, weakness, others EENTM: denies: blurred vision, double vision, ear bleeding, ear discharge, ear drainage, ear pain, ear ringing, eye pain, eye redness, hearing loss, mouth pain, mouth swelling, nasal discharge, nose bleeding, nose congestion, nose pain, photophobia, tearing, throat pain, throat swelling, voice changes, others Respiratory: denies: cough, hemoptysis, orthopnea, SOB at rest, shortness of breath, SOB with excertion, stridor, wheezing, others Cardiovascular: reports: chest pain; denies: dizzy spells, diaphoresis, Dyspnea on exertion, edema, irregular heart beat, left arm pain, lightheadedness, palpitations, PND, syncope, others Gastrointestinal: denies: abdomen distended, abdominal pain, blood streaked bowels, constipated, diarrhea, dysphagia, difficulty swallowing, hematemesis, melena, nausea, poor appetite, poor fluid intake, rectal bleeding, rectal pain, vomiting, others Genitourinary: denies: burning, dysuria, flank pain, frequency, hematuria, incontinence, penile discharge, penile sore, pain, testicle pain, testicle swelling, urgency, others Neurological: denies: dizziness, fainting, headache, left sided numbness, left sided weakness, numbness, paresthesia, pre-existing deficit, right sided numbness, right sided weakness, seizure, speech problems, tingling, tremors, weakness, others Musculoskeletal: denies: back pain, gout, joint pain, joint swelling, muscle pain, muscle stiffness, neck pain, others Integumetry: denies: bruises, change in color, change in hair/nails, dryness, laceration, lesions, lumps, rash, wounds, others Allergic/Immunocompromised: denies: Difficulty Healing, Frequent Infections, Hives, Itching, others Hematologic/Lymphatic: denies: anemia, blood clots, easy bleeding, easy bruising, swollen glands, others Endocrine: denies: excessive hunger, excessive sweating, excessive thirst, excessive urination, flushing, intolerance to cold, intolerance to heat, unexplained weight gain, unexplained weight loss, others Psychiatric: denies: anxiety, bipolar disorder, depression, hopeless, panic disorder, schizophrenia, sleepless, suicidal, others All Other Systems: Reviewed and Negative Physical Exam General Appearance: Moderate Distress, Obese HEENT: Normal ENT Inspection, Pharynx Normal, TMs Normal Neck: Full Range of Motion, Non-Tender, Normal, Normal Inspection Respiratory: Chest Non-Tender, Lungs Clear, No Accessory Muscle Use, No Resp iratory Distress, Normal Breath Sounds Cardiovascular: No Edema, No JVD, No Murmur, No Gallop, Normal Peripheral Pulses, Regular Rate/Rhythm Breast Exam: Deferred Gastrointestinal: No Organomegaly, Non Tender, No Pulsatile Mass, Normal Bowel Sounds, Soft Genitalia: Deferred Pelvic: Deferred Rectal: Deferred Extremities: No calf tenderness Musculoskeletal : Apperance: Normal Neurologic: Alert, No Motor Deficits, No Sensory Deficits Cerebellar Function: NOT DONE Reflexes: NOT DONE Skin: Dry, Normal Color, Warm Peripheral Pulses: 3+ Radial (R), 3+ Radial (L) Lymphatic: No Adenopathy Was a procedure done? Was a procedure done?: No CP Differential Dx Differential Diagnosis: A-fib, A-Flutter, Angina, Anxiety / Panic Attack, Atrial Dysrhythmia, Electrolyte Disorder Differential Diagnosis: HTN Essential, HTN Accelerated Differential Diagnosis: Chest Wall Pain, Costochondritis, Gastritis X-Ray, Labs, Meds, VS Vital Signs Date Time Temp Pulse Resp B/P (MAP) Pulse Ox O2 Delivery O2 Flow Rate FiO2 01/23/25 07:30 61 15 95 Room Air* 0 21 01/23/25 07:30 97.7 61 16 102/61 (75) 95 97.7 01/23/25 05:15 62 21 94 Room Air* 0 21 01/23/25 05:15 97.7 62 21 113/61 (78) 94 97.7 01/23/25 04:19 97.8 68 14 115/67 94 97.8 01/23/25 04:09 69 Lab Test 01/23/25 04:32 Range/Units Troponin I High Sensitivity < 3 L </=54 ng/L Patient alert. No sign of distress. Heart rate within normal limits. Saturation pristine on room air. He is obese. Chronic condition. No shortness a breath. Cardiac marker within normal limits. DVT study within normal limits. Possible gastritis. Was given prescription of Protonix. Explained to the patient. Spoke with Dr. Lord at [facility] that he will have an appointment as soon as the of the earliest [phone] right buttock at. Was told to follow up with his primary care physician. Was told to come back if there is any problem. [facility] [address] [place] [address] Ph: [phone] DIAGNOSTIC IMAGING Diagnostic Imaging Report : [id number] Signed PATIENT: RICHI BHAKTA ACCT: [id number] UNIT: [id number] : 1965 LOC: ER ROOM / BED: / AGE / SEX: 59 / M ADM STATUS: REG ER SERVICE [id number] ORDERING PHYSICIAN: NAILA CHENEY MD PROCEDURE(s): BLDVT - BiLat Lower DVT REASON: dvt ORDER NUMBER(s): [id number], ACCESSION NUMBER(s): [id number] Bilateral lower extremity venous duplex Clinical History: dvt Comparison: XY L TIB FIB XRAY on DOS: 12/10/23, XY R TIB FIB XRAY on DOS: 12/10/23, US BILAT LOWER DVT on DOS: 12/10/23 Technique: Duplex Doppler evaluation of the deep venous systems of both lower extremities from the common femoral veins to the popliteal veins including color Doppler and spectral/pulsed waveform analysis was performed. Findings: RIGHT SIDE: The common femoral vein demonstrates appropriate compressibility and waveform variability. There is compressibility/patency of the great saphenous vein at the proximal thigh. The femoral vein demonstrates appropriate compressibility and waveform variability. The deep femoral vein demonstrates appropriate compressibility and waveform variability. The popliteal vein demonstrates appropriate compressibility and waveform variability. There is normal compressibility at the tibioperoneal trunk. LEFT SIDE: The common femoral vein demonstrates appropriate compressibility and waveform variability. There is compressibility/patency of the great saphenous vein at the proximal thigh. The femoral vein demonstrates appropriate compressibility and waveform variability. The deep femoral vein demonstrates appropriate compressibility and waveform variability. The popliteal vein is not visualized Impression: No right DVT. Left lower extremity is limited secondary to patient body habitus and edema. There is nonvisualization of the left popliteal vein and calf vessels. There is nonvisualization of the proximal left superficial femoral vein. Otherwise, of the visualized left lower extremity deep venous system, no DVT. ATED BY: HERMAN SOLORIO MD DICTATED DATE/TIME: 01/23/25848 SIGNED BY: HERMAN SOLORIO MD SIGNED DATE/TIME: 01/23/25848 CC: Time of 1ST Reevaluation: 06:50 Reevaluation 1ST: Unchanged Patient Education/Counseling: Diagnosis, Treatment Family Education/Counseling: No Family Present SEPSIS Sepsis Screen Date sepsis recognized/suspect: Jan 23, 2025 Time Sepsis recognized/suspect: 514 Recent Procedure: No On Antibiotic Therapy: No Respiratory Rate >20: Yes Heart Rate >90: No Temp<36 C (96.8 F) or >38.3 C: No SBP <90 or MAP <65 mmHG: No New Acute Mental Status Change: No Is the patient on CPAP, BIPAP,: No Physician Orders Electrocardigram (01/23/25 04:09) Bilat Lower Dvt (01/23/25 07:50) Vital Signs Date Time Temp Pulse Resp B/P (MAP) Pulse Ox O2 Delivery O2 Flow Rate FiO2 01/23/25 07:30 61 15 95 Room Air* 0 21 01/23/25 07:30 97.7 61 16 102/61 (75) 95 97.7 01/23/25 05:15 62 21 94 Room Air* 0 21 01/23/25 05:15 97.7 62 21 113/61 (78) 94 97.7 01/23/25 04:19 97.8 68 14 115/67 94 97.8 01/23/25 04:09 69 Departure 1 Departure Time of Disposition: 08:55 Impression: Primary Impression: Gastritis Disposition: 01 HOME / SELF CARE / HOMELESS Condition: Good e-Prescriptions Pantoprazole Sodium Sesquihydr (Protonix) 40 Mg Tab 40 MG PO DAILY PRN for 5 Days, #5 TAB Prov: NAILA CHENEY MD 01/23/25 Discharged With: Self Critical Care Note Critical Care Time?: No Stability Stability form required: No Heart Score Heart Score: Heart Score Response (Comments) Value History Moderate Suspicious 1 EKG N/A 0 Age 45-64 1 Risk Factors 1 or 2 risk factors 1 Troponin Normal limit 0 Total 3 I personally scribed for NAILA CHENEY MD ([email or web address]) on 01/23/25 at 06:25. Electronically submitted by Elida Brown ([email or web address]). I personally scribed for NAILA CHENEY MD ([email or web address]) on 01/23/25 at 07:06. Electronically submitted by Elida Brown ([email or web address]). I personally scribed for NAILA CHENEY MD ([email or web address]) on 01/23/25 at 08:57. Electronically submitted by Elida Brown ([email or web address]). NAILA CHENEY MD Jan 23, 2025 06:25
[2025-01-23 07:30] VITALS: PULSE 61; RESP 15; O2SAT 95
--- NOTE | 2025-01-23 08:51 | DVH ---
Bilateral lower extremity venous duplex Clinical History: dvt Comparison: XY L TIB FIB XRAY on DOS: 12/10/23, XY R TIB FIB XRAY on DOS: 12/10/23, US BILAT LOWER DVT on DOS: 12/10/23 Technique: Duplex Doppler evaluation of the deep venous systems of both lower extremities from the common femora l veins to the popliteal veins including color Doppler and spectral/pulsed waveform analysis was perf ormed. Findings: RIGHT SIDE: The common femoral vein demonstrates appropriate compressibility and waveform variability. There is compressibility/patency of the great saphenous vein at the proximal thigh. The femoral vein demonstrates appropriate compressibility and waveform variability. The deep femoral vein demonstrates appropriate compressibility and waveform variability. The popliteal vein demonstrates appropriate compressibility and waveform variability. There is normal compressibility at the tibioperoneal trunk. LEFT SIDE: The common femoral vein demonstrates appropriate compressibility and waveform variability. There is compressibility/patency of the great saphenous vein at the proximal thigh. The femoral vein demonstrates appropriate compressibility and waveform variability. The deep femoral vein demonstrates appropriate compressibility and waveform variability. The popliteal vein is not visualized Impression: No right DVT. Left lower extremity is limited secondary to patient body habitus and edema. There is nonvisualizati on of the left popliteal vein and calf vessels. There is nonvisualization of the proximal left superf icial femoral vein. Otherwise, of the visualized left lower extremity deep venous system, no DVT.
[2025-01-23] MEDS ORDERED: PANT40TA2 PO (08:56)
[2025-01-23 12:00] VITALS: TEMP 97.7
[2025-01-23 15:37] VITALS: BP 109/66; PULSE 60; RESP 16; O2SAT 95
--- NOTE | 2025-01-24 14:59 | ECG ---
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
== END 2025-01-23 09:38 | disposition home or self-care (01) ==
LOC: ER 04:08 → EDBD 04:08 → ER 09:38
DX: K29.70 Gastritis, unspecified, without bleeding (principal); I10 Essential (primary) hypertension; I25.2 Old myocardial infarction; Z79.899 Other long term (current) drug therapy; Z86.718 Personal history of other venous thrombosis and embolism; Z86.73 Personal history of transient ischemic attack (TIA), and cerebral infarction without residual deficits; Z88.0 Allergy status to penicillin
CPT/HCPCS: 36415; 84484; 93005; 93970